=== PATIENT | female | born 1945 | race Caucasian/White ===

== ENCOUNTER → 2020-05-29 13:50 | Outpatient (BNVA) | payer MEDICARE, SELFPAY | PROVIDERS: PCP Internal Medicine; Referring Provider Internal Medicine; Visit Provider Urology | DX: Z76.89 Persons encountering health services in other specified circumstances (principal) | CPT/HCPCS: Q3014 ==

== ENCOUNTER → 2020-06-19 14:06 | Outpatient (BNVA) | payer MEDICARE, SELFPAY | PROVIDERS: PCP Internal Medicine; Visit Provider Urology | DX: Z76.89 Persons encountering health services in other specified circumstances (principal) | CPT/HCPCS: 52000; 99212 ==

== ENCOUNTER → 2020-12-18 14:30 | Outpatient (BNVA) | payer MEDICARE, SELFPAY | PROVIDERS: PCP Internal Medicine; Visit Provider Urology | DX: N32.81 Overactive bladder (principal) | CPT/HCPCS: 51798; 99212 ==

== ENCOUNTER → 2021-07-20 13:41 | Outpatient (BNVA) | payer MEDICARE, SELFPAY | PROVIDERS: PCP Internal Medicine | DX: N32.81 Overactive bladder (principal) | CPT/HCPCS: 51798; 99212 ==

== ENCOUNTER → 2021-10-08 09:45 | Outpatient (BNVA) | payer MEDICARE, SELFPAY | PROVIDERS: PCP Internal Medicine | DX: N32.81 Overactive bladder (principal); F17.210 Nicotine dependence, cigarettes, uncomplicated | CPT/HCPCS: Q3014 ==

== ENCOUNTER → 2022-01-06 09:39 | Outpatient (BNVA) | payer MEDICARE, SELFPAY | PROVIDERS: PCP Internal Medicine | DX: N32.81 Overactive bladder (principal) | CPT/HCPCS: Q3014 ==

== ENCOUNTER → 2022-07-11 10:09 | Outpatient (BNVA) | payer MEDICARE, SELFPAY | PROVIDERS: PCP Internal Medicine; Visit Provider Urology | DX: N32.81 Overactive bladder (principal); N39.41 Urge incontinence | CPT/HCPCS: 51798; 99212 ==

== ENCOUNTER 2024-07-01 11:02 | Outpatient (REF) | payer MEDICARE, SELFPAY ==
[2024-07-01 16:41] LABS: Urine Cytology See Pathology rpt
== END 2024-07-01 11:03 | disposition home or self-care (01) ==
LOC: HO.LAB 11:02
PROVIDERS: PCP Internal Medicine; Visit Provider Urology
DX: N39.0 Urinary tract infection, site not specified (principal); N32.81 Overactive bladder; N39.41 Urge incontinence; R31.29 Other microscopic hematuria
CPT/HCPCS: 81003; 87086; 88112; 99212

== ENCOUNTER 2024-07-01 11:02 | Outpatient (AMB) | payer MEDICARE, SELFPAY ==
--- NOTE | 2024-06-30 16:09 | A.OFFVIS_ITS ---
Intake Visit Reasons: overdue follow-up, overactive bladder/PVR Intake Note: Patient is present for OVERDUE F/U OVERACTIVE BLADDER/PVR Urology Medication:VIBEGRON Antibiotic Allergy:NONE Blood Thinner:NONE Senior Customer Service Representative Required: No Allergies No Known Allergies Allergy (Verified 07/01/24 11:04) Medication List - Last Reconciled 07/01/24 by Willard Hensley MD alendronate 70 mg PO QWEEK escitalopram oxalate 10 mg PO DAILY esomeprazole magnesium 40 mg PO DAILY gabapentin 600 mg PO TID meloxicam 7.5 mg PO DAILY metaxalone 800 mg PO BID PRN tiotropium bromide 1 cap inhalation DAILY trospium ER 60 mg PO DAILY umeclidinium 62.5 mcg/actuation 1 inh inhalation DAILY HPI Comments Details: 07/01/24--Last seen 2021- was being treated with gemtesa Brittany is here for follow-up, she is here with her dog Denae, she states that the Gemtesa works really well but it is expensive 165 dollars for the 90 day supply. She just filled the medication but is interested in an alternative option. I will trial trospium 60 mg daily. Urinalysis today 3+ blood. We will send urine for culture and cytology. Comorbidity nicotine use. Discussed follow-up with ultrasound kidney and bladder and office cystoscopy. Review of chart: 07/05/2022-- Brittany CARPIO is here for follow-up for overactive bladder symptoms urinary frequency and urge incontinence. She has been treated with oxybutynin and Myrbetriq in the past. She is currently on gem tests. She states that urinary symptoms are improved but she still has leakage episodes and wears pull-ups during the day. She complains of back pain. On evaluation today urinalysis no signs of infection. Bladder scan PVR 195 mL. Will continue Gemtesa. Monitor PVRs. Urinary Urge/Frequency: Prior treatment with Myrbetriq and oxybutynin Current treatment Gemtesa 75 mg daily Current symptoms include frequency Yes nocturia Yes urgency Yes pad usage - Yes dysuria No chills No hematuria No constipation No extremity weakness No PFSH Medical History At high risk for urge incontinence of urine Overactive bladder Surgical History History of surgery Review of Systems Const All systems reviewed & are unremarkable except as noted in HPI and below Reports no additional complaints Eyes Reports no additional complaints ENT Reports no additional complaints Card Reports no additional complaints Resp Reports no additional complaints GI Reports no additional complaints Reports as per HPI Musc Reports no additional complaints Skin/Breast Reports system reviewed and no additional complaints, except as documented Neuro Reports no additional complaints Psych Reports no additional complaints Endo Reports no additional complaints Chon/Lymph Reports no additional complaints Aller/Immun Reports no additional complaints Results AMB Urinalysis, Automated UA Leukoctes 15 Nuno/uL Last Edit by BETSY Vu on 07/01/24 11:21 UA Nitrite Negative Last Edit by BETSY Vu on 07/01/24 11:21 UA Urobilinogen 1 mg/dL Last Edit by Missy Mao CCM on 07/01/24 11:21 UA Protein 30 mg/dL Last Edit by Missy Mao CCM on 07/01/24 11:21 UA pH 6.0 Last Edit by Missy Mao CCM on 07/01/24 11:21 UA Blood 200 Sheldon/uL Last Edit by BETSY Vu on 07/01/24 11:21 UA Specific [place] 1.015 Last Edit by Missy Mao CCM on 07/01/24 11: 21 UA Ketone Negative Last Edit by BETSY Vu on 07/01/24 11:21 UA Bilirubin 0 mg/dL Last Edit by Missy Mao CCM on 07/01/24 11:21 UA Glucose 0 mg/dL Last Edit by Missy Mao CCM on 07/01/24 11:21 Results Reviewed Results Reviewed: Laboratory Last Values Urine pH (Auto) 6.0 07/01/24 11:21 Specific [place] (Auto) 1.015 07/01/24 11:21 Urine Protein (Auto) 30 mg/dL 07/01/24 11:21 Glucose (UA)(Auto) 0 mg/dL 07/01/24 11:21 Urine Ketones (Auto) Negative 07/01/24 11:21 Urine Blood (Auto) 200 Sheldon/uL 07/01/24 11:21 Urine Nitrite (Auto) Negative 07/01/24 11:21 Urine Bilirubin (Auto) 0 mg/dL 07/01/24 11:21 Urine Urobilinogen (Auto) 1 mg/dL 07/01/24 11:21 Leukocyte Esterase (Auto) 15 Nuno/uL 07/01/24 11:21 Assessment & Plan Assessment & Plan (1) Overactive bladder: Code(s): N32.81 - Overactive bladder Category: Medical (2) Urge incontinence of urine: Code(s): N39.41 - Urge incontinence Category: Medical (3) Microscopic hematuria: Code(s): R31.29 - Other microscopic hematuria Category: Medical Plan She states that the Gemtesa works really well but it is expensive 165 dollars for the 90 day supply. She just filled the medication but is interested in an alternative option. I will trial trospium 60 mg daily. Urinalysis today 3+ blood. We will send urine for culture and cytology. Comorbidity nicotine use. Discussed follow-up with ultrasound kidney and bladder and office cystoscopy. Orders: Orders Urine Culture 07/01/24 N39.0 - Urinary tract infection, site not specified AMB Urinalysis Automated 07/01/24 Z13.9 - Encounter for screening, unspecified Urine Cytology 07/01/24 N39.0 - Urinary tract infection, site not specified US retroperitoneal comp 07/01/24 R31.29 - Other microscopic hematuria Medications: New trospium ER must be taken on empty stomach at least 1 hour before a meal/food with water only to replace gemtesa 60 mg PO DAILY 90 caps 2RF N39.41 - Urge incontinence Discontinued vibegron Discontinued Reason: Doctor's Order 75 mg PO DAILY 90 tabs 3RF for bladder muscle dysfunction Patient Instructions: The patient had an opportunity to ask questions regarding treatment plan. The patient expressed understanding and agreement with the above treatment plan. The patient is aware they should contact our office by phone for worsening of their current condition or the appearance of new symptoms. Compliance is encouraged with any medications and followup testing that is ordered. It is a privilege to be allowed the opportunity to participate in the urologic care of your patient. If you have any questions or concerns regarding treatment for the above conditions please do not hesitate to contact me. The office telephone contact is [phone]. This note is constructed in part using voice recognition software. While every effort has been made to ensure accuracy agent telegrapher errors may have been included. Yours sincerely, Willard Hensley MD Coding Level of Care Code Est Pt Level 4 (19812) Diagnoses Overactive bladder N32.81 Urge incontinence of urine N39.41 Microscopic hematuria R31.29
== END 2024-07-01 12:09 | disposition home or self-care (01) ==
LOC: HO.HUSH 11:02
PROVIDERS: PCP Internal Medicine; Visit Provider Urology
DX: N32.81 Overactive bladder (principal); N39.41 Urge incontinence; R31.29 Other microscopic hematuria
CPT/HCPCS: 99214

== ENCOUNTER 2024-08-26 09:28 | Outpatient (AMB) | payer MEDICARE, SELFPAY ==
--- NOTE | 2024-08-26 10:34 | MHC.OFFVIS ---
Intake Visit Reasons: Cysto/US Intake Note: Patient is present for Cystoscopy Urology Med: Antibiotic Allergy: None Blood Thinner: None LABS: URO G-HD Disposable Cystoscope LOT: EXP: Cryptologic Technician Technical Required: No Accompanied by: Self / Same As Patient Allergies No Known Allergies Allergy (Verified 08/26/24 10:35) Medication List - Last Reconciled 08/26/24 by Willard Hensley MD alendronate 70 mg PO QWEEK escitalopram oxalate 10 mg PO DAILY esomeprazole magnesium 40 mg PO DAILY gabapentin 600 mg PO TID meloxicam 7.5 mg PO DAILY metaxalone 800 mg PO BID PRN tiotropium bromide 1 cap inhalation DAILY trospium ER 60 mg PO DAILY umeclidinium 62.5 mcg/actuation 1 inh inhalation DAILY HPI Comments Details: 08/26/24--Brittany is a 79-year-old female who we are following due to overactive bladder symptoms and urge incontinence. She was prescribed Gemtesa change to trospium due to insurance coverage. Comorbidity nicotine use. She presents today without her support herman Philippe, she states she has been doing well and leaking less on the Trospium 60 mg daily, although she still wears pull-ups. She states that she had the ultrasound of the kidneys done at [facility]. Will have staff get report faxed to our office. Cystoscopy today-bladder muscle thickening otherwise no suspicious bladder lesions. Review of chart: 07/01/24--Last seen 2021- was being treated with gemtesa Brittany is here for follow-up, she is here with her dog Denae, she states that the Gemtesa works really well but it is expensive 165 dollars for the 90 day supply. She just filled the medication but is interested in an alternative option. I will trial trospium 60 mg daily. Urinalysis today 3+ blood. We will send urine for culture and cytology. Comorbidity nicotine use. Discussed follow-up with ultrasound kidney and bladder and office cystoscopy. 07/05/2022-- Brittany CARPIO is here for follow-up for overactive bladder symptoms urinary frequency and urge incontinence. She has been treated with oxybutynin and Myrbetriq in the past. She is currently on gem tests. She states that urinary symptoms are improved but she still has leakage episodes and wears pull-ups during the day. She complains of back pain. On evaluation today urinalysis no signs of infection. Bladder scan PVR 195 mL. Will continue Gemtesa. Monitor PVRs. Urinary Urge/Frequency: Prior treatment with Myrbetriq and oxybutynin Current treatment Gemtesa 75 mg daily Current symptoms include frequency Yes nocturia Yes urgency Yes pad usage - Yes dysuria No chills No hematuria No constipation No extremity weakness No PFSH Medical History At high risk for urge incontinence of urine Overactive bladder Surgical History History of surgery Review of Systems Const All systems reviewed & are unremarkable except as noted in HPI and below Reports no additional complaints Eyes Reports no additional complaints ENT Reports no additional complaints Card Reports no additional complaints Resp Reports no additional complaints GI Reports no additional complaints Reports as per HPI Musc Reports no additional complaints Skin/Breast Reports system reviewed and no additional complaints, except as documented Neuro Reports no additional complaints Psych Reports no additional complaints Endo Reports no additional complaints Chon/Lymph Reports no additional complaints Aller/Immun Reports no additional complaints Office Procedures Cystoscopy Consent Discussed risk and benefit or proposed procedure with the patient. Information consent for procedure given to the patient. Discussed technical aspects, risks, benefits and alternatives in full. Addressed all of the patient's questions and concerns regarding the procedure. The patient demonstrated knowledge and understanding. They wish to proceed with this procedure. Preparation The patient was prepped in the usual manner. A line crew supervisor was present and in the room. Genitalia was prepped with betadine solution in a sterile manner. Lidocaine Jelly 2% was placed into the urethra and 16Fr flexible Olympus cystoscope was inserted into the meatus after adequate lubrication. Procedure Time out per protocol performed. Bladder Inspection Bladder Inspection: The bladder was inspected in its entirety with utilization retroflexion displaying: Tumor(s): no suspicious bladder lesions visualized Trabeculation: Mild to Moderate Mucosal Erthema: NA Orifices: normal shape and position Urethra: normal Cystoscopy findings: Bladder wall thickening, no suspicious bladder lesions visualized [id number] DISPOSABLE SCOPE URO-G FLEXIBLE SCOPE Procedure code (CPT) selection complete Office Meds lidocaine HCl 2 % mucosal jelly in applicator Performing Provider: Willard Hensley MD Performing Location: [facility] Documented (not given) by: Willard Hensley MD on 08/26/24 11:08 Dose Route Admin Location Dispensed Lot Number Expiration Date NDC Ball Point Splitter 10 mL intra-urethral mL naproxen 500 mg tablet Performing Provider: Willard Hensley MD Performing Location: [facility] Documented (not given) by: Willard Hensley MD on 08/26/24 11:08 Dose Route Admin Location Dispensed Lot Number Expiration Date NDC Ball Point Splitter 500 mg PO tab ciprofloxacin HCl 500 mg tablet Performing Provider: Willard Hensley MD Performing Location: [facility] Documented (not given) by: Willard Hensley MD on 08/26/24 11:08 Dose Route Admin Location Dispensed Lot Number Expiration Date NDC Ball Point Splitter 500 mg PO tab Results AMB Urinalysis, Automated UA Leukoctes 0 Nuno/uL Last Edit by Gay Guidry, JOEY on 08/26/24 10:53 UA Nitrite Negative Last Edit by Gay Guidry, [facility] on 08/26/24 10:53 UA Urobilinogen 0.2 mg/dL Last Edit by Gay Guidry, [facility] on 08/26/24 10:53 UA Protein 0 mg/dL Last Edit by Gay Guidry, [facility] on 08/26/24 10:53 UA pH 6.0 Last Edit by Gay Guidry, [facility] on 08/26/24 10:53 UA Blood 0 Sheldon/uL Last Edit by Gay Guidry, [facility] on 08/26/24 10:53 UA Specific [place] 1.015 Last Edit by Gay Guidry, [facility] on 08/26/24 10:53 UA Ketone Negative Last Edit by Gay Guidry, [facility] on 08/26/24 10:53 UA Bilirubin 0 mg/dL Last Edit by Gay Guidry, [facility] on 08/26/24 10:53 UA Glucose 0 mg/dL Last Edit by Gay Guidry, [facility] on 08/26/24 10:53 Assessment & Plan Assessment & Plan (1) Overactive bladder: Code(s): N32.81 - Overactive bladder Category: Medical (2) Urge incontinence of urine: Code(s): N39.41 - Urge incontinence Category: Medical (3) Microscopic hematuria: Code(s): R31.29 - Other microscopic hematuria Category: Medical Plan Obtain renal ultrasound results. Continue trospium. Follow-up in 9 months. Orders: Orders AMB Urinalysis Automated Today N39.41 - Urge incontinence, Z13.9 - Encounter for screening, unspecified AMB Cystoscopy Today N39.41 - Urge incontinence Medications: New lidocaine HCl 2% 10 mL intra-urethral ONCE 10 mL 0RF N39.41 - Urge incontinence naproxen 500 mg PO ONCE 1 tab 0RF N39.41 - Urge incontinence ciprofloxacin HCl 500 mg PO ONCE 1 tab 0RF N39.41 - Urge incontinence Patient Instructions: The patient had an opportunity to ask questions regarding treatment plan. The patient expressed understanding and agreement with the above treatment plan. The patient is aware they should contact our office by phone for worsening of their current condition or the appearance of new symptoms. Compliance is encouraged with any medications and followup testing that is ordered. It is a privilege to be allowed the opportunity to participate in the urologic care of your patient. If you have any questions or concerns regarding treatment for the above conditions please do not hesitate to contact me. The office telephone contact is [phone]. This note is constructed in part using voice recognition software. While every effort has been made to ensure accuracy audit partner errors may have been included. Yours sincerely, Willard Hensley MD Coding Level of Care Code Procedure Only Diagnoses Overactive bladder N32.81 Urge incontinence of urine N39.41 Microscopic hematuria R31.29 CPT Codes Cystoscopy - CPT: 46254-[id number] ([id number])
== END 2024-08-26 11:04 | disposition home or self-care (01) ==
PROVIDERS: PCP Internal Medicine; Visit Provider Urology
DX: N32.81 Overactive bladder (principal); N39.41 Urge incontinence; R31.29 Other microscopic hematuria; Z13.9 Encounter for screening, unspecified
CPT/HCPCS: 52000

== ENCOUNTER → 2024-08-26 09:28 | Outpatient (BNVA) | payer MEDICARE, SELFPAY | PROVIDERS: PCP Internal Medicine; Visit Provider Urology | DX: N32.81 Overactive bladder (principal); N39.41 Urge incontinence; R31.29 Other microscopic hematuria | CPT/HCPCS: 52000; 81003 ==

== ENCOUNTER 2025-06-04 09:53 | Outpatient (AMB) | payer MEDICARE, SELFPAY ==
--- OUTSIDE RECORDS SUMMARY | 2024-11-29 09:09 | XMS_ITS ---
Author Organization [facility] Address [address] [place] [id number] Care Team Providers Care Neon Sign Servicer Name Role Phone RENAN MARSHALL Primary Care Provider REASON FOR VISIT UA Order Encounters Encounter Location Date Provider Diagnosis [address] [address] 11/29/2024 RENAN MARSHALL PLAN OF TREATMENT Next Appt Details Provider Name:RENAN PALMA, 06/05/2025 11:30:00 AM, [address] [place], [address],
--- OUTSIDE RECORDS SUMMARY | 2024-11-30 05:33 | XMS_ITS ---
Author Organization [facility] Address [address] [place], [place] [phone] Care Team Providers Care Casing Crew Name Role Phone RENAN MARSHALL Primary Care Provider REASON FOR VISIT (W)ua Encounters Encounter Location Date Provider Diagnosis [address] [address] 11/30/2024 RENAN MARSHALL Cystitis N30.90 ASSESSMENTS Encounter Date Diagnosis Assessment Notes Treatment Notes Treatment Clinical Notes Section Notes 11/30/2024 Cystitis (ICD-10 - N30.90) PLAN OF TREATMENT Future Test Test Name Order Date Urinalysis, Complete w/ME-[id number] Urine Culture, Routine-[id number] 11/30/2024 Next Appt Details Provider Name:RENAN PALMA, 06/05/2025 11:30:00 AM, [address] [place] [address], [phone],
--- OUTSIDE RECORDS SUMMARY | 2024-12-03 04:15 | XMS_ITS ---
Author Organization [facility] Address [address] [place], [place] [id number] Care Team Providers Care Pot Lining Supervisor Name Role Phone RENAN MARSHALL Primary Care Provider [phone] RAFI SANABRIA Unavailable [phone] ALLERGIES Allergen (clinical drug ingredient) Drug/Non Drug Allergy documented on EMR Reaction Allergy Type Onset Date Status ANESTHESIA (uncoded) projectile vomiting nonstop Allergy Active Methyl methacrylate METHYL METHACRYLATE (uncoded) Unknown Allergy Active YANKEE CANDLE (uncoded) Unknown Allergy Active budesonide Budesonide Unknown Drug Allergy Activ e lidocaine Lidocaine rash/hives Drug Allergy Active Latex Latex Unknown Allergy Active REASON FOR VISIT Consult for a marijuana card MEDICATIONS Medication SIG (Take, Route, Frequency, Duration) Notes Start Date End Date Status Acular 0.5 % 1 drop into affected eye as needed Ophthalmic Four times a day to start after surgery Active Meloxicam 15 MG 1 tablet orally Once a day for 30 days Active Alendronate Sodium 70 MG 1 tablet orally Once a week for 90 days Active Gabapentin 300 MG 2 capsules orally 3 times daily Active Incruse Ellipta 62.5 MCG/ACT 1 puff Inhalation Once a day Active Acetaminophen 500 MG 1 tablet as needed Orally every 6 hrs Active Trospium Chloride ER 60 MG 1 capsule in the morning on an empty stomach or 1 hour before a meal Orally Once a day Active Omeprazole 40 MG 1 cap(s) orally once a day 08/03/2015 Active SOCIAL HISTORY Tobacco Use: Social History Observation Description Date Details (start date - stop date) Current Smoker NA - NA Sex Assigned At : Social History Observation Description Sex Assigned At Unknown Smoking Question Answer Notes Are you a: current smoker How many cigarettes a day do you smoke? 5 or les s Section Notes: former smoker: quit 12/2014 VITAL SIGNS Height 64.5 in 12/03/2024 Weight 133.8 lbs 12/03/2024 Blood pressure systolic 132 mm Hg 12/04/19 25 Blood pressure diastolic 70 mm Hg 025 BMI 22.61 kg/m2 12/03/2024 Encounters Encounter Location Date Provider Diagnosis [facility] [address] [place] [phone] 12/03/2024 RAFI SANABRIA Dorsalgia M54.9 ASSESSMENTS Encounter Date Diagnosis Assessment Notes Treatment Notes Treatment Clinical Notes Section Notes 12/03/2024 Dorsalgia (ICD-10 - M54.9) She has chronic pain, having had multiple surgeries. She would like to try a CBD/THC combination. She had been on oxycodone in the past for pain management. PDMP confirms no active opiate Rx. She is looking for a medical marijuana card so that she can go to a dispensary and purchase edibles for pain management. We discussed the process and I provided printed instructions She will discuss product options with dispensary staff. She will go onto the state web site to apply for the card. 12/03/2024 Other 30' encounter for counseling, processing PLAN OF TREATMENT Treatment Notes Assessment Notes Dorsalgia She has chronic pain, having had multiple surgeries. She would like to try a CBD/THC combination. She had been on oxycodone in the past for pain management. PDMP confirms no active opiate Rx. She is looking for a medical marijuana card so that she can go to a dispensary and purchase edibles for pain management. We discussed the process and I provided printed instructions She will discuss product options with dispensary staff. She will go onto the state web site to apply for the card. Other 30' encounter for co unseling, processing Next Appt Details Provider Name:RENAN PALMA, 06/05/2025 11:30:00 AM, [address] [place], [phone],
--- OUTSIDE RECORDS SUMMARY | 2024-12-03 11:42 | XMS_ITS ---
Author Organization [facility] Address [address] [place], [place] [phone] Care Team Providers Care Process Inspector Name Role Phone RENAN MARSHALL Primary Care Provider [phone] REASON FOR VISIT (W)unable to reach pt letter sent Encounters Encounter Location Date Provider Diagnosis [facility] [address] [place] [phone] 12/03/2024 RENAN MARSHALL PLAN OF TREATMENT Next Appt Details Provider Name:RENAN PALMA, 06/05/2025 11:30:00 AM, [address] [place], [phone],
--- OUTSIDE RECORDS SUMMARY | 2025-02-28 08:39 | XMS_ITS ---
Author Organization [facility] Address [address] [place] [id number] Care Team Providers Care Rn Oncology Name Role Phone RENAN MARSHALL Primary Care Provider REASON FOR VISIT echo Encounters Encounter Location Date Provider Diagnosis [address] [address] 02/28/2025 RENAN MARSHALL PLAN OF TREATMENT Next Appt Details Provider Name:RENAN PALMA, 06/05/2025 11:30:00 AM, [address] [place], [address],
--- OUTSIDE RECORDS SUMMARY | 2025-03-25 09:30 | XMS_ITS ---
Author Organization [facility] Address [address] [place], [place] [phone] Care Team Providers Care Waiter Waitress Name Role Phone RENAN MARSHALL Primary Care Provider [phone] RAFI SANABRIA [phone] REASON FOR VISIT 40/42 consult for a marijuana card Encounters Encounter Location Date Provider Diagnosis [address] [address] 03/25/2025 RAFI SANABRIA PLAN OF TREATMENT Next Appt Details Provider Name:RENAN PALMA, 06/05/2025 11:30:00 AM, [address] [place], [phone],
--- OUTSIDE RECORDS SUMMARY | 2025-04-23 07:56 | XMS_ITS ---
Author Organization [facility] Address [address] [place] [phone] Care Team Providers Care Aggregate Conveyor Operator Name Role Phone RENAN MARSHALL Primary Care Provider REASON FOR VISIT Derm. referral Encounters Encounter Location Date Provider Diagnosis [address] [address] 04/23/2025 RENAN MARSHALL PLAN OF TREATMENT Next Appt Details Provider Name:RENAN PALMA, 06/05/2025 11:30:00 AM, [address] [place], [phone],
--- OUTSIDE RECORDS SUMMARY | 2025-04-26 06:00 | XMS_ITS ---
Author Organization [facility] Address [address] [place], [place] [phone] Care Team Providers Care Store Promoter Name Role Phone RENAN MARSHALL Primary Care Provider [phone] CLINIC, FLU Unavailable Unavailable REASON FOR VISIT 42/Flu Encounters Encounter Location Date Provider Diagnosis [address] [address] 04/26/2025 [facility]U [facility] PLAN OF TREATMENT Next Appt Details Provider Name:RENAN PALMA, 06/05/2025 11:30:00 AM, [address] [place], [phone],
--- OUTSIDE RECORDS SUMMARY | 2025-04-29 10:43 | XMS_ITS ---
Author Organization [facility] Address [address] [place], [place] [phone] Care Team Providers Care Dietary Server Name Role Phone RENAN MARSHALL Primary Care Provider [phone] Encounters Encounter Location Date Provider Diagnosis [facility] [address] [place] [phone] 04/29/2025 RENAN MARSHALL PLAN OF TREATMENT Next Appt Details Provider Name:RENAN PALMA, 06/05/2025 11:30:00 AM, [address] [place], [address],
--- OUTSIDE RECORDS SUMMARY | 2025-05-05 08:13 | XMS_ITS ---
Author Organization [facility] Address [address] [place] [phone] Care Team Providers Care Gastroenterology Professor Name Role Phone RENAN MARSHALL Primary Care Provider [phone] REASON FOR VISIT capacity/compliant Encounters Encounter Location Date Provider Diagnosis [address] [address] 05/05/2025 RENAN MARSHALL PLAN OF TREATMENT Next Appt Details Provider Name:RENAN PALMA, 06/05/2025 11:30:00 AM, [address] [place], [address],
--- NOTE | 2025-06-04 10:25 | A.OFFVIS_ITS ---
Intake Visit Reasons: 9m/med review/OAB Intake Note: Patient is present for 9m/med review/OAB Urology Med:Trospium Antibiotic Allergy: None Blood Thinner: None Flight Controls Engineer Required: No Accompanied by: Self / Same As Patient Allergies No Known Allergies Allergy (Verified 08/26/24 10:35) HPI Comments Details: 06/04/25--Brittany is followed for overactive bladder symptoms and urge incontinence. She was last seen in the office 08/26/2024 Ed ENT cholinergic medication was changed from Gemtesa to trospium insurance coverage. History of Present Illness The patient is a 79-year-old female presenting with overactive bladder and urgent incontinence. She has been followed for these symptoms and was last seen in the office on August 26, 2024. Her anticholinergic medication was changed from Gemtesa to Trospium due to insurance coverage issues. The patient reports taking Trospium 60 mg once daily. She experiences nocturnal urinary urgency, requiring her to wake every four hours to urinate, especially if she does not get up to let her dog out. During the day, she manages to keep her pads dry, but they become wet at night if she does not wake up in time. Results - Urinalysis: No signs of infection Plan 1. Overactive Bladder 2. Urgent Incontinence - Continue Trospium 60 mg once daily. - Follow-up in one year. 08/26/24--Brittany is a 79-year-old female who we are following due to overactive bladder symptoms and urge incontinence. She was prescribed Gemtesa change to trospium due to insurance coverage. Comorbidity nicotine use. She presents today without her support herman Philippe, she states she has been doing well and leaking less on the Trospium 60 mg daily, although she still wears pull-ups. She states that she had the ultrasound of the kidneys done at [facility]. Will have staff get report faxed to our office. Cystoscopy today-bladder muscle thickening otherwise no suspicious bladder lesions. 07/01/24--Last seen 2021- was being treated with gemtesa Brittany is here for follow-up, she is here with her dog Denae, she states that the Gemtesa works really well but it is expensive 165 dollars for the 90 day supply. She just filled the medication but is interested in an alternative option. I will trial trospium 60 mg daily. Urinalysis today 3+ blood. We will send urine for culture and cytology. Comorbidity nicotine use. Discussed follow-up with ultrasound kidney and bladder and office cystoscopy. 07/05/2022-- Brittany CARPIO is here for follow-up for overactive bladder symptoms urinary frequency and urge incontinence. She has been treated with oxybutynin and Myrbetriq in the past. She is currently on gem tests. She states that urinary symptoms are improved but she still has leakage episodes and wears pull-ups during the day. She complains of back pain. On evaluation today urinalysis no signs of infection. Bladder scan PVR 195 mL. Will continue Gemtesa. Monitor PVRs. Urinary Urge/Frequency: Prior treatment with Myrbetriq and oxybutynin Current treatment Gemtesa 75 mg daily Current symptoms include frequency Yes nocturia Yes urgency Yes pad usage - Yes dysuria No chills No hematuria No constipation No extremity weakness No PFSH Medical History At high risk for urge incontinence of urine Overactive bladder Surgical History History of surgery Office Procedures Post Void Residual Post Residual Void Post Void Residual (PVR): 0 [id number] Void Residual by ultrasound Results AMB Urinalysis, Automated UA Leukoctes 0 Nuno/uL Last Edit by Anitra Craig on 06/04/25 15:53 UA Nitrite Negative Last Edit by Anitra Craig on 06/04/25 15:53 UA Urobilinogen 0.2 mg/dL Last Edit by Anitra Craig on 06/04/25 15:53 UA Protein 0 mg/dL Last Edit by Anitra Craig on 06/04/25 15:53 UA pH 8.0 Last Edit by Anitra Craig on 06/04/25 15:53 UA Blood 0 Sheldon/uL Last Edit by Anitra Craig on 06/04/25 15:53 UA Specific Byron 1.005 Last Edit by Anitra Craig on 06/04/25 15:53 UA Ketone Negative Last Edit by Anitra Craig on 06/04/25 15:53 UA Bilirubin 0 mg/dL Last Edit by Anitra Craig on 06/04/25 15:53 UA Glucose 250 mg/dL Last Edit by Anitra Craig on 06/04/25 15:53 Assessment & Plan Assessment & Plan (1) Overactive bladder: Code(s): N32.81 - Overactive bladder Category: Medical (2) Urge incontinence of urine: Code(s): N39.41 - Urge incontinence Category: Medical (3) Microscopic hematuria: Code(s): R31.29 - Other microscopic hematuria Category: Medical Plan Plan 1. Overactive Bladder 2. Urgent Incontinence - Continue Trospium 60 mg once daily. - Follow-up in one year. Orders: Orders AMB Urinalysis Automated Today N39.41 - Urge incontinence Medications: Refilled trospium ER must be taken on empty stomach at least 1 hour before a meal/food with water only to replace gemtesa 60 mg PO DAILY 90 caps 3RF N39.41 - Urge incontinence Patient Instructions: The patient had an opportunity to ask questions regarding treatment plan. The patient expressed understanding and agreement with the above treatment plan. The patient is aware they should contact our office by phone for worsening of their current condition or the appearance of new symptoms. Compliance is encouraged with any medications and followup testing that is ordered. It is a privilege to be allowed the opportunity to participate in the urologic care of your patient. If you have any questions or concerns regarding treatment for the above conditions please do not hesitate to contact me. The office telephone contact is [phone]. This note is constructed in part using voice recognition software. While every effort has been made to ensure accuracy risk consultant errors may have been included. Yours sincerely, Willard Hensley MD Coding Diagnoses Overactive bladder N32.81 Urge incontinence of urine N39.41 Microscopic hematuria R31.29 CPT Codes Post Residual Void - PVR CPT Code: 43214-Ilwu Void Residual by ultrasound ([id number])
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
--- OUTSIDE RECORDS SUMMARY | 2025-06-04 11:54 | XMS_ITS | Clinical Summary ---
Author Organization [facility] Address [address] [place] [address] Phone Care Team Providers Care Flower Stripper Name Role Phone Jd Marshall MD Primary Care Provider + [phone] Allergies Active Allergy Reactions Criticality Noted Date Comments Budesonide 01/20/2022 Latex 01/20/2022 Levofloxacin 01/20/2022 Lidocaine 01/20/2022 Methylmethacrylate 01/20/2022 Butylated Methacrylate Coploymer [Methylmethacrylate] Medications alendronate (FOSAMAX) 70 mg tablet Take 70 mg by mouth every 7 days. Active gabapentin (NEURONTIN) 300 mg capsule Take 300 mg by mouth 2 times daily. Active meloxicam (MOBIC) 7.5 mg tablet Take 7.5 mg by mouth daily. Active mirabegron (MYRBETRIQ) 50 mg tablet extended release 24 hr 24 hr tablet Take by mouth. Active omeprazole (PRILOSEC) 20 mg tablet,delayed release (DR/EC) Take by mouth. Active tolterodine LA (DETROL LA) 2 mg 24 hr capsule Take 2 mg by mouth daily. Active umeclidinium (Incruse Ellipta) 62.5 mcg/actuation inhalation Inhale into the lungs. Active vibegron (Gemtesa) 75 mg tablet tablet Take by mouth. Active furosemide (LASIX) 20 mg tablet Take 1 tablet (20 mg total) by mouth 1 (one) time each day. 8 Active hydrocortisone (ANUSOL-HC) 2.5 % rectal cream APPLY A SMALL AMOUNT TO SKIN TWICE A DAY NEEDED FOR HEMORRHOIDS . 4 Active omeprazole (PriLOSEC) [address] capsuleIndicati ons:Gastroesoph ageal reflux disease without esophagitis TAKE 1 CAPSULE BY MOUTH TWICE A DAY 180 capsule 5 Active omeprazole (PriLOSEC) [address] capsuleIndicati ons:Gastroesoph ageal reflux disease without esophagitis TAKE 1 CAPSULE BY MOUTH TWICE A DAY 60 capsule 5 025 Discontinued Active Problems Problem Noted Date Diagnosed Date Adhesions of flexor and extensor tendons 024 Ankle wound, right, sequela 05/29/2023 Numbness and tingling in right hand 04/27/2022 Unspecified injury of flexor muscle, fascia and tendon of right index finger at wrist and hand level, sequela 04/27/2022 Chronic midline low back pain without sciatica 0 01/20/2022 Overview (05/16/2024): Last Assessment & Plan: Ms. Carpio returns reporting the same issues we discussed last year, that she is walking flexed forward and has continued back pain despite vertebral augmentation for her compression fractures as well as lumbar decompressions. She continues to walk flexed forward and now uses a cane or a wheelchair. Which she has with her today. She demonstrates mid lumbar pain but tells me she is had recent episodes of thoracic pain. She denies weakness in her legs but states that they can go numb when she is laying flat on her back at night. She was quite angry that her legs were elevated for the MRI and insists that is the reason why we could not find the source of her problem on imaging. On exam, she has well-healed lumbar incisions and a mildly exaggerated kyphosis. Seated SLR is negative, strength 5/5, there is decrease sensation to light touch along the right lateral calf, she can take several steps without a cane. Review of the lumbar spine MRI from [facility] dated 01/17/2022 is unchanged from the prior study on 12/15/2020 chronic compression fractures at L1 and L2 with augmentation at L2. There is chronic retropulsed bone at L1 with some central stenosis. She has bulging disks at all levels from L1-S1 however there is no severe central stenosis. There is mild to moderate stenosis at L1-2, L2-3 and L3-4 which are all levels where she had a decompressive laminectomy. We discussed that there was no role for further surgery and she has agreed to try physical therapy for back strengthening exercises and posture correction. Encounters Date Type Department Care Team Description 04/22/2025 12:06 PM EDT - 04/22/2025 11:59 PM EDT Hospital Encounter [facility] Xray [address] [place] [address] Segmental and somatic dysfunction of cervical region; Segmental and somatic dysfunction of thoracic region; Segmental and somatic dysfunction of lumbar region Discharge Disposition: Home or Self Care 04/22/2025 12:06 PM EDT - 04/22/2025 11:59 PM EDT Hospital Encounter [facility] Xray [address] [place] [address] Segmental and somatic dysfunction of cervical region; Segmental and somatic dysfunction of thoracic region; Segmental and somatic dysfunction of lumbar region Discharge Disposition: Home or Self Care 04/22/2025 12:05 PM EDT - 04/22/2025 11:59 PM EDT Hospital Encounter [facility] Xray [address] [place] [address] Segmental and somatic dysfunction of cervical region; Segmental and somatic dysfunction of thoracic region; Segmental and somatic dysfunction of lumbar region Discharge Disposition: Home or Self Care from Last 3 Months Surgical History Surgery Date Site/Laterality Comments NECK SURGERY PROCEDURE: HISTORICAL NECK SURGERY; COMMENT: acdf several years BACK SURGERY PROCEDURE: HISTORICAL BACK SURGERY; COMMENT: L1 kyphoplasty OTHER SURGICAL HISTORY PROCEDURE: OK LAMOT PRTL FFD EXC DISC REEXPL 1 NTRSPC LUMBAR; COMMENT: L1-2 L2-3 decompression Medical History Medical History Date Comments Cataracts, bilateral DX:Cataract s, bilateral Asthma DX:Asthma Anxiety state DX:Anxiety state Depressive disorder DX:Depressiv e disorder Esophageal reflux DX:Esophageal reflux Sleep apnea DX:Sleep apnea Social History Tobacco Use Types Packs/Day Years Used Date Smoking Tobacco: Some Days Smokeless Tobacco: Never Alcohol Use Standard Drinks/Week Comments Never 0 (1 standard drink = 0.6 oz pur e alcohol) Comments No Sex and Gender Information Value Date Recorded Sex Assigned at Female 07/03/2024 9:33 AM EST Legal Sex Female 11:06 AM EST Gender Identity Female 07/03/2024 9:33 AM EST Sexual Orientation Straight 07/03/2024 9: 33 AM EST Obstetrics History Para Term AB IAB SAB Ectopic Multiple Livin g Live Births 2 Last Filed Vital Signs Vital Sign Reading Time Taken Comments Blood Pressure 127/77 02/27/2025 3:46 PM EDT Pulse 79 03/01/2024 8:50 AM EDT Temperature - - Respiratory Rate - - Oxygen Saturation - - Inhaled Oxygen Concentration - - Weight 55.8 kg (123 lb) 02/27/2025 3:46 PM EDT Height 160 cm (5' 3 ) 02/27/2025 3:46 PM EDT Body Mass Index 21.79 02/27/2025 3:46 PM EDT Plan of Treatment Health Maintenance Due Date Last Done Comments Zoster Vaccines (1 of 2) 1995 RSV Immunization Adult Patients (1 - 1-dose 75+ series) 2020 Cholesterol Screening (Lipid Panel) 07/23/2022 Falls Risk Assessment 07/23/2022 Hepatitis C Screening 07/23/2022 Medicare Annual Wellness Visit 07/23/2022 Social Influencers of Health Screening 07/23/2022 Depression Screening 08/14/2024 COVID-19 Vaccine (1 - 2023-2 5 season) 2025 Influenza Vaccine (#1) 2025 , 04/06/2016 DTaP,Tdap,and Td Vaccines (3 - Td or Tdap) 05/17/2033 05/17/2023, 10/16/2018 Osteoporosis Screening (Bone Density Screening) 11/22/2033 11/23/2023, 11/22/2018 Pneumococcal Vaccine: 50+ Years Completed 11/02/2023, 04/06/2016 HIB Vaccines Aged Out No longer eligi ble based on patient's age to complete this topic HPV Vaccines Aged Out No longer eligi ble based on patient's age to complete this topic Hepatitis A Vaccines Aged Out No long er eligible based on patient's age to complete this topic Hepatitis B Vaccines Aged Out No long er eligible based on patient's age to complete this topic IPV Vaccines Aged Out No longer eligi ble based on patient's age to complete this topic MMR Vaccines Aged Out No longer eligi ble based on patient's age to complete this topic Meningococcal ACWY Vaccine Aged Out N o longer eligible based on patient's age to complete this topic Meningococcal B Vaccine Aged Out No l onger eligible based on patient's age to complete this topic RSV Immunization Patients Under 20 months Aged Out No longer eligible b ased on patient's age to complete this topic Varicella Vaccines Aged Out No longer eligible based on patient's age to complete this topic Procedures Procedure Name Priority Date/Time Associated Diagnosis Comments XR CERVICAL SPINE 4-5 VIEWS Routine 04/22/2025 12:49 PM EDT Segmental and somatic dysfunction of cervical region Segmental and somatic dysfunction of thoracic region Segmental and somatic dysfunction of lumbar region XR THORACIC SPINE 2 VIEWS Routine 04/22/2025 12:48 PM EDT Segmental and somatic dysfunction of cervical region Segmental and somatic dysfunction of thoracic region Segmental and somatic dysfunction of lumbar region XR LUMBAR SPINE 2-3 VIEWS Routine 04/22/2025 12:48 PM EDT Segmental and somatic dysfunction of cervical region Segmental and somatic dysfunction of thoracic region Segmental and somatic dysfunction of lumbar region JOVAN DEXA AXIAL SKELETON Routine 11/23/2023 9:46 AM EDT Other specified disorders of bone density and structure, right thigh from Last 3 Months or Most Recently Relevant to Health Maintenance Results * XR Cervical Spine 4-5 Views (04/22/2025 12:49 PM EDT) Anatomical Region Laterality Modality Spine, C-spine Radiographic Carin ging 04/23/2025 7:50 AM EDT Impressions 04/23/2025 7:51 AM EDT Postoperative changes as above. No acute findings. Code 89154 -------- FINAL REPORT -------- Dictated By: William Worthington Dictated Date: 04/23/2025 07:50 ET Assigned Physician: William Worthington Reviewed and Electronically Signed By: William Worthington Signed Date: 04/23/2025 07:51 ET Workstation ID: [id number] Transcribed By: Self Edit Transcribed Date: 04/23/2025 07:50 ET Narrative 04/23/2025 7:51 AM EDT HISTORY: The patient is a 79-year-old female with chronic neck pain. FINDINGS: AP, lateral, open-mouth, and right and left oblique views of the cervical spine are obtained. No prior study is available for comparison. The patient is seen to have undergone previous fusion at the C4-7 levels. Anterior and posterior fixation hardware is present at C5-6. The surgical hardware appears well-positioned and intact. There is straightening of the cervical lordosis consistent with surgery. No fracture is seen. The remaining disc spaces are well-maintained. A large osteophyte extends superiorly from the anterior aspect of the superior endplate of C4. The neural foramina appear patent. There is no prevertebral soft tissue swelling. Procedure Note William Worthington MD - 04/23/2025 HISTORY: The patient is a 79-year-old female with chronic neck pain. FINDINGS: AP, lateral, open-mouth, and right and left oblique views of thecervical spine are obtained. No prior study is available for comparison.The patient is seen to have undergone previous fusion at the C4-7 levels.Anterior and posterior fixation hardware is present at C5-6. The surgicalhardware appears well-positioned and intact. There is straightening ofthe cervical lordosis consistent with surgery. No fracture is seen. Theremaining disc spaces are well-maintained. A large osteophyte extendssuperiorly from the anterior aspect of the superior endplate of C4. Theneural foramina appear patent. There is no prevertebral soft tissueswelling. IMPRESSION: Postoperative changes as above. No acute findings. Code 65960 -------- FINAL REPORT -------- Dictated By: William Worthington Dictated Date: 04/23/2025 07:50 ET Assigned Physician: William Worthington Reviewed and Electronically Signed By: William Worthington Signed Date: 04/23/2025 07:51 ET Workstation ID: [id number] Transcribed By: Self Edit Transcribed Date: 04/23/2025 07:50 ET [facility] [place] [facility]R PROCEDURES Final Res ult * XR Thoracic Spine 2 Views (04/22/2025 12:48 PM EDT) Anatomical Region Laterality Modality Spine, T-spine Radiographic Carin ging 04/23/2025 7:54 AM EDT Impressions 04/23/2025 7:55 AM EDT No acute findings. There are degenerative osteophytes throughout the thoracic spine. The patient is seen to have undergone previous percutaneous augmentation of compression fractures of L1 and L2. Code 15488 -------- FINAL REPORT -------- Dictated By: William Worthington Dictated Date: 04/23/2025 07:54 ET Assigned Physician: William Worthington Reviewed and Electronically Signed By: William Worthington Signed Date: 04/23/2025 07:55 ET Workstation ID: [id number] Transcribed By: Self Edit Transcribed Date: 04/23/2025 07:54 ET Narrative 04/23/2025 7:55 AM EDT HISTORY: The patient is a 79-year-old female with chronic upper back pain, nontraumatic. FINDINGS: AP and lateral radiographs of the thoracic spine partially include fixation hardware in the lower cervical spine. The alignment of the bony structures is anatomic. The patient is seen to undergone previous percutaneous augmentation of compression fractures of L1 and L2. No new fracture is seen. The disc spaces are well-maintained. Degenerative osteophytes are present throughout the thoracic spine. Procedure Note William Worthington MD - 04/23/2025 HISTORY: The patient is a 79-year-old female with chronic upper back pain,nontraumatic. FINDINGS: AP and lateral radiographs of the thoracic spine partiallyinclude fixation hardware in the lower cervical spine. The alignment ofthe bony structures is anatomic. The patient is seen to undergoneprevious percutaneous augmentation of compression fractures of L1 and L2.No new fracture is seen. The disc spaces are well-maintained.Degenerative osteophytes are present throughout the thoracic spine. IMPRESSION: No acute findings. There are degenerative osteophytes throughout thethoracic spine. The patient is seen to have undergone previouspercutaneous augmentation of compression fractures of L1 and L2. Code 72648 -------- FINAL REPORT -------- Dictated By: William Worthington Dictated Date: 04/23/2025 07:54 ET Assigned Physician: William Worthington Reviewed and Electronically Signed By: William Worthington Signed Date: 04/23/2025 07:55 ET Workstation ID: [id number] Transcribed By: Self Edit Transcribed Date: 04/23/2025 07:54 ET us Thony Nuñez DC IMG XR PROCEDURES Final Res ult * XR Lumbar Spine 2-3 Views (04/22/2025 12:48 PM EDT) Anatomical Region Laterality Modality Spine, L-spine Radiographic Carin ging 04/23/2025 7:59 AM EDT Impressions 04/23/2025 8:02 AM EDT No acute findings and no change since 11/28/2024. The patient is seen to have undergone previous percutaneous augmentation of L1 and L2 as also demonstrated previously. Diffuse degenerative disc disease. Again seen is mild, grade 1, 3.1 mm posterior spondylolisthesis of L2 relative to L3 and mild, grade 1, 4.1 mm anterior spondylolisthesis of L4 relative to L5. Code 40154 -------- FINAL REPORT -------- Dictated By: William Worthington Dictated Date: 04/23/2025 07:59 ET Assigned Physician: William Worthington Reviewed and Electronically Signed By: William Worthington Signed Date: 04/23/2025 08:02 ET Workstation ID: [id number] Transcribed By: Self Edit Transcribed Date: 04/23/2025 07:59 ET Narrative 04/23/2025 8:02 AM EDT HISTORY: The patient is a 79-year-old female with chronic low back pain, nontraumatic. FINDINGS: AP, lateral, and coned-down spot lateral views of the lumbosacral spine again demonstrate mild, grade 1, 3.1 mm posterior spondylolisthesis of L2 relative to L3 and mild, grade 1, 4.1 mm anterior spondylolisthesis of L4 relative to L5, unchanged since the prior study performed 11/28/2024. The alignment of the bony structures is otherwise anatomic. The patient seen to have undergone previous percutaneous augmentation of compression fractures of L1 and L2 as also demonstrated previously. No new fracture is seen. There is diffuse disc space narrowing throughout the lumbar spine with vacuum phenomenon consistent with degenerative disc disease, unchanged. Cholecystectomy clips are again seen. Atherosclerotic arterial calcification is noted. Procedure Note William Worthington MD - 04/23/2025 HISTORY: The patient is a 79-year-old female with chronic low back pain,nontraumatic. FINDINGS: AP, lateral, and coned-down spot lateral views of thelumbosacral spine again demonstrate mild, grade 1, 3.1 mm posteriorspondylolisthesis of L2 relative to L3 and mild, grade 1, 4.1 mm anteriorspondylolisthesis of L4 relative to L5, unchanged since the prior studyperformed 11/28/2024. The alignment of the bony structures is otherwiseanatomic. The patient seen to have undergone previous percutaneousaugmentation of compression fractures of L1 and L2 as also demonstratedpreviously. No new fracture is seen. There is diffuse disc spacenarrowing throughout the lumbar spine with vacuum phenomenon consistentwith degenerative disc disease, unchanged. Cholecystectomy clips are again seen. Atherosclerotic arterialcalcification is noted. IMPRESSION: No acute findings and no change since 11/28/2024. The patient is seen tohave undergone previous percutaneous augmentation of L1 and L2 as alsodemonstrated previously. Diffuse degenerative disc disease. Again seenis mild, grade 1, 3.1 mm posterior spondylolisthesis of L2 relative to L3and mild, grade 1, 4.1 mm anterior spondylolisthesis of L4 relative toL5. Code 39102 -------- FINAL REPORT -------- Dictated By: William Worthington Dictated Date: 04/23/2025 07:59 ET Assigned Physician: William Worthington Reviewed and Electronically Signed By: William Worthington Signed Date: 04/23/2025 08:02 ET Workstation ID: [id number] Transcribed By: Self Edit Transcribed Date: 04/23/2025 07:59 ET us Thony Nuñez DC IMG XR PROCEDURES Final Res ult * JOVAN DEXA AXIAL SKELETON (11/23/2023 9:46 AM EDT) Anatomical Region Laterality Modality Mammography 11/23/2023 8:42 AM EDT Narrative 11/23/2023 9:[address] [facility] Diagnostic Imaging Department [address] [place] [id number] Patient: GILDARDOJANNIEJR Chandana Muse./Age/Sex: 1945 - 78 - F Unit#: [id number] Location/Status: [facility] CLI [facility] Ordering Physician: JD MARSHALL MD [facility] Dexa Axial Skeleton - 11/23/23 - 0929 Report Status:Signed HISTORY: The patient is a 78-year-old postmenopausal female smoker with clinical concern for metabolic bone disease. FINDINGS: Dual energy x-ray absorptiometry of the lumbar spine and femurs is performed. The mean bone mineral density at L3-4 is 1.446 gm/cm2 which is 121% of that of young normals and 150% of that of age matched controls. This yields a T-score of 2.1 and a Z-score of 4.0 and there is therefore no evidence of osteoporosis or osteopenia here. The mean bone mineral density of the femurs bilaterally is 0.900 gm/cm2 which is 89% of that of young normals and 119% of that of age matched controls. This yields a T-score of -0.9 and a Z-score of 1.2 and there is therefore no evidence of osteoporosis or osteopenia here. However, the T-score of the right femoral neck is -2.1 and that of the left femoral neck is -2.3 which is diagnostic of osteopenia. IMPRESSION: 1. Osteopenia. There has been an increase of 10.2% in bone mineral density in the lumbar spine since the prior examination of 11/22/2018. There has been a decrease of 2.9% in bone mineral density in the right femur and a decrease of 3.6% in bone mineral density in the left femur. 2. FRAX analysis yields a 10-year probability of major osteoporotic fracture of 16.8% and a 10-year probability of hip fracture of 7.3%. Code 40659 Dictating Physician: WILLIAM WORTHINGTON MD Electronically Signed by: WILLIAM WORTHINGTON MD Dic Date/Time: 11/23/23943 Sign date/Time: 11/23/23945 Procedure Note William Worthington MD - 04/01/2024 [facility] Diagnostic Imaging Department [address] [place] [address] Patient: JR CARPIO Chandana GutierrezB./Age/Sex: 1945 - 78 - F Unit#: [id number] Location/Status: [facility] CLI Mnemonic[facility] Ordering Physician: JD MASRHALL MD [facility] Dexa Axial Skeleton - 11/23/23928 Report Status:Signed HISTORY: The patient is a 78-year-old postmenopausal female smoker with clinical concern for metabolic bone disease. FINDINGS: Dual energy x-ray absorptiometry of the lumbar spine and femursis performed. The mean bone mineral density at L3-4 is 1.446 gm/cm2 which is121% of that of young normals and 150% of that of age matched controls. Thisyields a T-score of 2.1 and a Z-score of 4.0 and there is therefore no evidenceof osteoporosis or osteopenia here. The mean bone mineral density of the femurs bilaterally is 0.900 gm/el0trgzr is 89% of that of young normals and 119% of that of age matched controls.This yields a T-score of -0.9 and a Z-score of 1.2 and there is therefore noevidence of osteoporosis or osteopenia here. However, the T-score of the rightfemoral neck is -2.1 and that of the left femoral neck is -2.3 which is diagnosticof osteopenia. IMPRESSION: 1. Osteopenia. There has been an increase of 10.2% in bone mineraldensity in the lumbar spine since the prior examination of 11/22/2018. There has natasha decrease of 2.9% in bone mineral density in the right femur and a decreaseof 3.6% in bone mineral density in the left femur. 2. FRAX analysis yields a 10-year probability of major osteoporoticfracture of 16.8% and a 10-year probability of hip fracture of 7.3%. Code 05359 Dictating Physician: WILLIAM WORTHIGNTON MD Electronically Signed by: WILLIAM WORTHINGTON MD Dic Date/Time: 11/23/23 0944 Sign date/Time: 11/23/23 0946 Jd Marshall MD IM BI PROCEDURES Final Resu lt from Last 3 Months or Most Recently Relevant to Health Maintenance Insurance [employer] Care Teams Flower Stripper Relationship Specialty Start Date End Date Jd Marshall MD [address] [place] [address] PCP - General Internal Medicine 12/27/12
--- OUTSIDE RECORDS SUMMARY | 2025-06-04 11:54 | XMS_ITS | Continuity of Care Document ---
Author Organization [facility] Address [address] [facility] [address] [place] [address] Phone [phone] Social History Type Date Description Comments Sex Female Sex Unknown Medical Devices Description No Information Available Encounters Description No Information Available Assessments Description No Information Available Plan of Treatment No Information Available Functional Status Description No Information Available Mental Status Description No Information Available Referrals Description No Information Available
--- OUTSIDE RECORDS SUMMARY | 2025-06-04 11:55 | XMS_ITS | Clinical Summary ---
Author Organization [facility] Address [address] [place], [place] [id number] Care Team Providers Care Ruffling Machine Operator Name Role Phone Jd Larose MD Primary Care Provider + [phone] Medications Medication Sig Dispensed Refills Start Date End Date Status furosemide (LASIX) 20 MG tablet TAKE ONE TABLET BY MOUTH ONCE DAILY 30 tablet 3 12/04/2017 Active Social History Tobacco Use Types Packs/Day Years Used Date Smoking Tobacco: Never Assessed Sex and Gender Information Value Date Recorded Sex Assigned at Not on file Gender Identity Not on file Sexual Orientation Not on file Job Start Date Occupation Industry Not on file Not on file Not on file Plan of Treatment Health Maintenance Due Date Last Done Comments Hepatitis C Screening 1945 COVID-19 Vaccine (#1) 02/18/1946 Depression Screening 1957 Preventative Health Evaluation 1963 DTap / Tdap / Td (1 - Tdap) 1964 Shingrix-Zoster Vaccine (1 of 2) 1995 Fall Risk Assessment 2010 Osteoporosis Screening (DEXA Scan) 2010 Pneumococcal Vaccine (1 of 1 - PCV) 2010 RSV Adult > 60+ Yrs or Pregn ant (1 - 1-dose 75+ series) 2020 Influenza Vaccine (#1) 2025 Hepatitis B Vaccines Aged Out No long er eligible based on patient's age to complete this topic RSV Ped < 20 months Aged Out No longe r eligible based on patient's age to complete this topic Care Teams Ruffling Machine Operator Relationship Specialty Start Date End Date Jd Larose MD [address] [phone] PCP - General Internal Medicine 08/09/16
== END 2025-06-04 10:53 | disposition home or self-care (01) ==
LOC: HO.HUSH 09:54
PROVIDERS: PCP Internal Medicine; Visit Provider Urology
DX: N39.41 Urge incontinence (principal)

== ENCOUNTER → 2025-06-04 09:53 | Outpatient (BNVA) | payer MEDICARE, SELFPAY | PROVIDERS: PCP Internal Medicine; Visit Provider Urology | DX: N39.41 Urge incontinence (principal); N32.81 Overactive bladder; R31.29 Other microscopic hematuria | CPT/HCPCS: 51798; 81003; 99212 ==